=== PATIENT | female | born 1955 ===

== ENCOUNTER → 2017-11-30 | Outpatient (CLI) | payer MEDICARE, OTHER ==
[~2017-11-30] MED LIST: AML5 PO; AMLO-99 PO; APIX5TAB PO; BAC10 PO; BAC15T TOP; BACL-1 PO; CEFU500T50 PO; CRAN1TAB PO; CRAN500C10 PO; DIA5 PO; ERGO500025 PO; ESOM40CA42 PO; ESTRAVEN; FLAX100027 PO; FLAX100030 PO; FOLI-68 PO; FOLI0.4T56 PO; FURO20TA19 PO; FURO40TA35 PO; HYDR-2954 PO; HYDR-2966 PO; LEVO25TA56 PO; LEVO50TA86 PO; LIDO700A25 TP; MULT1CAP41 PO; OMEP40CA45 PO; ONDA4TAB PO; ONDA4TAB97 PO; OXYC5CAP21 PO; PAN40 PO; RIVA15TA PO; RIVA20TA PO; SPIR25TA78 PO; SPIR50TA30 PO; TER2 PO; TERA10CA42 PO; VITA1CAP46 PO; [UNRECOGNIZED DRUG - CODE] PO
[2017-11-30 18:32] LABS: PLATELET COUNT, AUTOMATED 317 K/uL (150-450)
== END ==
LOC: LAB 17:57
PROVIDERS: ATTEND Internal Medicine Nephrology
DX: I12.9 Hypertensive chronic kidney disease with stage 1 through stage 4 chronic kidney disease, or unspecified chronic kidney disease (principal); N18.4 Chronic kidney disease, stage 4 (severe); E55.9 Vitamin D deficiency, unspecified
CPT/HCPCS: 36415; 82040; 82306; 82310; 82374; 82435; 82565; 82947; 83970; 84100; 84132; 84295; 84520; 85025